=== PATIENT | male | born 1950 | race African-American/Black ===

== ENCOUNTER 2017-07-06 00:54 | Emergency (ER) | payer BC ==
[~2017-07-06] VITALS: Ht 167.6 cm; Wt 76.1 kg
[2017-07-06 02:32] VITALS: BP 129/53
== END 2017-07-06 02:36 | disposition home or self-care (01) ==
LOC: ER 00:54
DX: R05 Cough (principal); R03.0 Elevated blood-pressure reading, without diagnosis of hypertension; G40.909 Epilepsy, unspecified, not intractable, without status epilepticus
CPT/HCPCS: 99283

== ENCOUNTER 2017-07-29 18:20 | Emergency (ER) | payer BC ==
[~2017-07-29] VITALS: Ht 167.6 cm; Wt 73.0 kg
[2017-07-29 20:40] VITALS: BP 133/45
== END 2017-07-29 20:50 | disposition home or self-care (01) ==
LOC: ER 18:55
DX: R56.9 Unspecified convulsions (principal)
CPT/HCPCS: 99283

== ENCOUNTER 2018-02-16 15:17 | Emergency (ER) | payer BC ==
[~2018-02-16] VITALS: Ht 165.1 cm; Wt 74.7 kg
[2018-02-16] MEDS ORDERED: ACETAMINOPHEN 325MG TABLET PO ONE (18:45)
[2018-02-16 20:03] VITALS: BP 121/56
== END 2018-02-16 20:01 | disposition home or self-care (01) ==
LOC: ER 15:17
DX: M79.645 Pain in left finger(s) (principal); Z98.890 Other specified postprocedural states
CPT/HCPCS: 73130; 99284

== ENCOUNTER 2018-11-30 15:23 | Emergency (ER) | payer BC ==
[~2018-11-30] VITALS: Ht 177.8 cm; Wt 56.0 kg
[2018-11-30] MEDS ORDERED: VANCOMYCIN 1 G PREMIX 200 ML IV SCH (18:00)
[2018-11-30 18:55] VITALS: BP 136/66
== END 2018-11-30 19:00 | disposition home or self-care (01) ==
LOC: ER 15:23
DX: J06.9 Acute upper respiratory infection, unspecified (principal)
CPT/HCPCS: 71045; 99283

== ENCOUNTER 2021-09-09 17:20 | Emergency (ER) | payer BC ==
[~2021-09-09] VITALS: Ht 172.7 cm; Wt 68.0 kg
[2021-09-09] MEDS ORDERED: ONDANSETRON HCL 4MG/2ML INJ IV STA (18:10)
[2021-09-09] MEDS ORDERED: MORPHINE SULFATE 4 MG/ML CPJ (NOT FOR IM USE) IV STA (18:10)
[2021-09-09] MEDS ORDERED: MORPHINE SULFATE 4 MG/ML CPJ (NOT FOR IM USE) IV NR (20:05)
[2021-09-09] MEDS ORDERED: ONDANSETRON HCL 4MG/2ML INJ IV NR (20:05)
[2021-09-09 20:24] VITALS: BP 135/77
[2021-09-09 20:52] LABS: CHLORIDE 111 mEq/L (98-107)
[2021-09-09 21:00] LABS: BASOPHILS % 0.5 % (0.0-2.0); EOSINOPHILS % 1.1 % (0.0-5.0); HEMATOCRIT. 36.7 % (42.0-52.0); LYMPHOCYTES % 21.6 % (20.0-50.0); MEAN CORPUSCULAR HEMOGLOBIN 30.9 pg (28.0-32.0); MEAN CORPUSCULAR VOLUME 94.3 fL (80.0-94.0); MEAN PLATELET VOLUME 8.5 fl (7.4-10.4); MONOCYTES % 14.3 % (2.0-8.0); NEUTROPHILS % 62.5 % (40.0-76.0); PLATELET 235 x1000/uL (130-400); RED BLOOD CELL COUNT 3.89 mill/uL (4.7-6.1); RED CELL DISTRIBUTION WIDTH 13.2 % (11.6-14.6)
[2021-09-09 21:12] LABS: CLARITY URINE CLOUDY (CLEAR); COLOR URINE YELLOW (YELLOW); KETONES URINE NEGATIVE (NEGATIVE); LEUKOCYTE ESTERASE URINE TRACE (NEGATIVE); NITRITE URINE NEGATIVE (NEGATIVE); OCCULT BLOOD URINE NEGATIVE (NEGATIVE); PH URINE 7.5 (4.5-8.0); PROTEIN URINE NEGATIVE (NEGATIVE); SPECIFIC GRAVITY URINE 1.018 (1.005-1.030); UROBILINOGEN URINE 0.2 E.U./dL (0.2-1.0)
[2021-09-09] MEDS ORDERED: CEFTRIAXONE 1 G PREMIX 50 ML IV ONE (21:45)
[2021-09-09] MEDS ORDERED: CEPH500C2 MT (22:07)
== END 2021-09-09 21:47 | disposition home or self-care (01) ==
LOC: ER 17:20
DX: N39.0 Urinary tract infection, site not specified (principal); R03.0 Elevated blood-pressure reading, without diagnosis of hypertension; G40.909 Epilepsy, unspecified, not intractable, without status epilepticus
CPT/HCPCS: 36415; 74176; 80053; 81003; 83690; 85025; 93005; 96374; 96375; 99285; J2270; J2405

== ENCOUNTER 2022-01-28 04:16 | Emergency (ER) | payer BC ==
[~2022-01-28] VITALS: Ht 177.8 cm; Wt 79.0 kg
[~2022-01-28 04:16] MED LIST: CEPH500C2 MT
[2022-01-28 04:18] VITALS: BP 133/68
[2022-01-28] MEDS ORDERED: IBUPROFEN 600MG TABLET PO ONE (05:45)
[2022-01-28] MEDS ORDERED: TETANUS AND DIPHTHERIA TOX/PF 0.5ML SYR (ADULT) IM ONE (07:45)
== END 2022-01-28 08:27 | disposition home or self-care (01) ==
LOC: ER 04:16
DX: S00.211A Abrasion of right eyelid and periocular area, initial encounter (principal); S09.90XA Unspecified injury of head, initial encounter; I10 Essential (primary) hypertension; Z86.59 Personal history of other mental and behavioral disorders; Z98.890 Other specified postprocedural states; W01.0XXA Fall on same level from slipping, tripping and stumbling without subsequent striking against object, initial encounter; Y93.89 Activity, other specified; Y92.89 Other specified places as the place of occurrence of the external cause; Y99.8 Other external cause status
CPT/HCPCS: 90471; 90714; 99284